=== PATIENT | female | born 1950 | race Caucasian/White ===

== ENCOUNTER → 2023-10-25 | Outpatient (CLI) | payer MEDICARE | END | disposition home or self-care (01) | LOC: MAMMO 13:30 | PROVIDERS: ATTEND Obstetrics & Gynecology | DX: N63.11 Unspecified lump in the right breast, upper outer quadrant (principal) ==

== ENCOUNTER → 2023-11-07 | Outpatient (CLI) | payer MEDICARE | END | disposition home or self-care (01) | LOC: SDC 11:00 → EDSTATUS 11:00 | PROVIDERS: ATTEND Obstetrics & Gynecology | DX: N60.01 Solitary cyst of right breast (principal) ==

== ENCOUNTER → 2024-01-28 | Day surgery (SDC) | payer MEDICARE ==
[~2024-01-28] VITALS: Ht 157.4 cm; Wt 86.2 kg
[~2024-01-28] MED LIST: ACETAMINOPHEN 100 ML IV ONE; Dexamethasone Sodium Phospha 4 MG/ML VIAL IV ONE; HYDROCODONE-AC1 EAC1 PO; Ketorolac Tromethamine 30 MG/ML VIAL IV ONE; Lactated Ringer's Solution 1,000 ML IV ONE; Lactated Ringer's Solution 1,000 ML IV SCH; Lidocaine Hydrochloride 2% 5 ML SDV IV ONE; Lidocaine Hydrochloride 30 ML VIAL ONE; MAGNESIUM SULFATE 1 GM/2 ML VIAL IV ONE; Midazolam Hydrochloride 2 MG/2 ML VIAL IV ONE; Ondansetron Hydrochloride 4 MG/2 ML VIAL IV ONE; PROPOFOL 200 MG/20 ML VIAL IV ONE; ROCURONIUM BROMIDE 50 MG/5 ML SYRINGE IV ONE; SEVOFLURANE 250 ML BOT INH ONE; SUGAMMADEX SODIUM 200 MG/2 ML VIAL IV ONE
[2024-01-28 11:28] VITALS: BP 122/56
[2024-01-28 11:43] VITALS: BP 103/68
[2024-01-28 11:58] VITALS: BP 106/67
[2024-01-28 12:13] VITALS: BP 133/86
[2024-01-28 12:28] VITALS: BP 142/74
== END | disposition home or self-care (01) ==
LOC: SDC 01-24 10:15
PROVIDERS: ATTEND Surgery
DX: C50.911 Malignant neoplasm of unspecified site of right female breast (principal); N60.01 Solitary cyst of right breast; F17.210 Nicotine dependence, cigarettes, uncomplicated; Z88.0 Allergy status to penicillin; Z79.899 Other long term (current) drug therapy; Z90.49 Acquired absence of other specified parts of digestive tract; Z90.89 Acquired absence of other organs; Z98.890 Other specified postprocedural states